=== PATIENT | female | born 1955 | race Caucasian/White ===

== ENCOUNTER 2016-08-14 20:37 | Emergency (ER) | payer MEDICAID ==
[2016-08-14 20:45] VITALS: RESP 18; TEMP 98
[2016-08-14] MEDS ORDERED: SODIUM CHLORIDE 0.9% 1,000 ML IV STA (21:10)
[2016-08-14] MEDS ORDERED: KETOROLAC 30 MG/ML 1 ML VIAL IVP STA (21:11)
[2016-08-14] MEDS ORDERED: ORPHENADRINE 30 MG/ML 2 ML VIAL IM STA (21:11)
--- NOTE | 2016-08-14 21:24 | ED ---
Back Pain HPI - General Chief Complaint: Back Pain/Injury Stated Complaint: Back pain Time Seen by Provider: 08/14/16 20:59 Source: patient, RN notes reviewed Limitations: no limitations - History of Present Illness Initial Comments: 60-year-old female presents emergency room chief complaint of back pain to the left side. Patient states along the left upper and lower back. Patient states she bends down or moves a certain way the pain is worse. Patient states an achy type pain. Patient states it happened when she was at work today. Patient states she does not remember injuring and she does not remember reaching for something lifting something when it occurred. Patient states she has no shortness of breath with this but she states it sometimes taking a deep breath will make the pain worse. Patient states that she has a having cough cold runny nose. Patient states that the pain gets intense she feels a little lightheaded she was a little bit of a headache. Patient states she hasn't had any nausea or vomiting. Patient states there is no chest pain. Patient denies any loss of bowel or bladder function or any radiation down the legs. Patient states that it feels almost like a musculoskeletal skeletal type injury but she cannot pinpoint how it occurred. Patient denies any recent fever, chills, shortness of breath, chest pain, abdominal pain, nausea vomiting, numbness or tingling, dysuria or hematuria, constipation or diarrhea, headaches or visual changes, or any other current symptoms. - Related Data Home Medications Medication Instructions Recorded Confirmed Atenolol [Tenormin] 25 mg PO HS 06/25/14 08/14/16 Ascorbic Acid [Vitamin C] 500 mg PO DAILY 08/14/16 08/14/16 Biotin 5 mg PO DAILY 08/14/16 08/14/16 Calcium Carbonate [Calcium] 600 mg PO DAILY 08/14/16 08/14/16 Flaxseed Oil [[place]-3 Flaxseed Oil] 1,000 mg PO DAILY 08/14/16 08/14/16 Vitamin B Complex 1 cap PO DAILY 08/14/16 08/14/16 Previous Rx's Medication Instructions Recorded Orphenadrine [Norflex] 100 mg PO Q12H #10 tablet.er 08/14/16 Allergies Allergy/AdvReac Type Severity Reaction Status Date / Time No Known Allergies Allergy Verified 08/14/16 20:53 Review of Systems ROS Statement: Those systems with pertinent positive or pertinent negative responses have been documented in the HPI. ROS Other: All systems not noted in ROS Statement are negative. Past Medical History Past Medical History: Hypertension History of Any Multi-Drug Resistant Organisms: None Reported Additional Past Surgical History / Comment(s): diverticulosis, right rib removal Past Psychological History: No Psychological Hx Reported Smoking Status: Never smoker Past Alcohol Use History: None Reported Past Drug Use History: None Reported General Exam - General Exam Comments Initial Comments: General: The patient is awake and alert, in no distress, and does not appear acutely ill. Eye: Pupils are equal, round and reactive to light, extra-ocular movements are intact; there is normal conjunctiva bilaterally. No signs of icterus. Ears, nose, mouth and throat: There are moist mucous membranes and no oral lesions. Neck: The neck is supple, there is no tenderness. Cardiovascular: There is a regular rate and rhythm. No murmur, rub or gallop is appreciated. Respiratory: Lungs are clear to auscultation, respirations are non-labored, breath sounds are equal. No wheezes, stridor, rales, or rhonchi. Gastrointestinal: Soft, non-distended, non-tender abdomen without masses or organomegaly noted. There is no rebound or guarding present. No CVA tenderness. Bowel sounds are unremarkable. Back: There is no tenderness to palpation in the midline. Tenderness of the left paraspinal region. There is no obvious deformity. No rashes noted. Musculoskeletal: Normal ROM, no tenderness, There is no pedal edema. There is no calf tenderness or swelling. Sensation intact. Pulses equal bilaterally 2+. Neurological: CN II-XII intact, There are no obvious motor or sensory deficits. Coordination appears grossly intact. Speech is normal. Skin: Skin is warm and dry and no rashes or lesions are noted. Psychiatric: Cooperative, appropriate mood & affect, normal judgment. Limitations: no limitations Course Vital Signs 08/14/16 08/14/16 20:42 23:00 Temperature 98.0 F Pulse Rate 61 65 Respiratory 18 18 Rate Blood Pressure 123/60 129/75 O2 Sat by Pulse 93 L 96 Oximetry Medical Decision Making - Medical Decision Making 60-year-old female presents emergency room chief complaint of left-sided flank pain. It is tender to touch. This time does not show any acute findings. Some excess patient might slightly as well as lumbar thoracic strain. We did discuss follow-up with Dr. Hernandez we discussed return parameters all patient's questions. She stated that she understood and she is in agreement with plan. She'll be discharged. - Lab Data Result diagrams: 08/14/16 21:32 08/14/16 21:32 Lab Results 08/14/16 08/14/16 08/14/16 Range/Units 21:32 21:32 21:32 WBC 6.4 (3.8-10.6) k/uL RBC 4.56 (3.80-5.40) m/uL Hgb 14.2 (11.4-16.0) gm/dL Hct 42.3 (34.0-46.0) % MCV 92.9 (80.0-100.0) fL MCH 31.1 (25.0-35.0) pg MCHC 33.4 (31.0-37.0) g/dL RDW 13.0 (11.5-15.5) % Plt Count 182 (150-450) k/uL Neutrophils % 60 % Lymphocytes % 30 % Monocytes % 6 % Eosinophils % 2 % Basophils % 1 % Neutrophils # 3.8 (1.3-7.7) k/uL Lymphocytes # 1.9 (1.0-4.8) k/uL Monocytes # 0.4 (0-1.0) k/uL Eosinophils # 0.1 (0-0.7) k/uL Basophils # 0.1 (0-0.2) k/uL PT (9.0-12.0) sec INR (<1.1) APTT (22.0-30.0) sec D-Dimer (<0.60) mg/L FEU Sodium 140 (137-145) mmol/L Potassium 4.5 (3.5-5.1) mmol/L Chloride 104 (98-107) mmol/L Carbon Dioxide 28 (22-30) mmol/L Anion Gap 8 mmol/L BUN 15 (7-17) mg/dL Creatinine 0.64 (0.52-1.04) mg/dL Est GFR (MDRD) Af Amer >60 (>60 ml/min/1.73 sqM) Est GFR (MDRD) Non-Af >60 (>60 ml/min/1.73 sqM) Glucose 92 (74-99) mg/dL Calcium 9.5 (8.4-10.2) mg/dL Magnesium 1.9 (1.6-2.3) mg/dL Total Bilirubin 0.6 (0.2-1.3) mg/dL AST 28 (14-36) U/L ALT 34 (9-52) U/L Alkaline Phosphatase 68 (38-126) U/L Total Creatine Kinase 201 H (30-135) U/L CK-MB (CK-2) 5.1 H* (0.0-2.4) ng/mL CK-MB (CK-2) Rel Index 2.5 Troponin I <0.012 (0.000-0.034) ng/mL Total Protein 7.2 (6.3-8.2) g/dL Albumin 4.4 (3.5-5.0) g/dL /08/25 Range/Units 21:32 WBC (3.8-10.6) k/uL RBC (3.80-5.40) m/uL Hgb (11.4-16.0) gm/dL Hct (34.0-46.0) % MCV (80.0-100.0) fL MCH (25.0-35.0) pg MCHC (31.0-37.0) g/dL RDW (11.5-15.5) % Plt Count (150-450) k/uL Neutrophils % % Lymphocytes % % Monocytes % % Eosinophils % % Basophils % % Neutrophils # (1.3-7.7) k/uL Lymphocytes # (1.0-4.8) k/uL Monocytes # (0-1.0) k/uL Eosinophils # (0-0.7) k/uL Basophils # (0-0.2) k/uL PT 10.4 (9.0-12.0) sec INR 1.0 (<1.1) APTT 23.8 (22.0-30.0) sec D-Dimer 0.55 (<0.60) mg/L FEU Sodium (137-145) mmol/L Potassium (3.5-5.1) mmol/L Chloride (98-107) mmol/L Carbon Dioxide (22-30) mmol/L Anion Gap mmol/L BUN (7-17) mg/dL Creatinine (0.52-1.04) mg/dL Est GFR (MDRD) Af Amer (>60 ml/min/1.73 sqM) Est GFR (MDRD) Non-Af (>60 ml/min/1.73 sqM) Glucose (74-99) mg/dL Calcium (8.4-10.2) mg/dL Magnesium (1.6-2.3) mg/dL Total Bilirubin (0.2-1.3) mg/dL AST (14-36) U/L ALT (9-52) U/L Alkaline Phosphatase (38-126) U/L Total Creatine Kinase (30-135) U/L CK-MB (CK-2) (0.0-2.4) ng/mL CK-MB (CK-2) Rel Index Troponin I (0.000-0.034) ng/mL Total Protein (6.3-8.2) g/dL Albumin (3.5-5.0) g/dL - EKG Data -: EKG Interpreted by 08/14/16 21:24 Sinus bradycardia 59 bpm, normal axis, no atopy, no S-T depressions or elevations, - Radiology Data Radiology results: report reviewed, image reviewed Disposition Clinical Impression: Lumbar strain Disposition: HOME SELF-CARE Condition: Stable Instructions: Lower Back Exercises (ED), Low Back Strain (ED) Additional Instructions: Please use medication as discussed. Please follow up with family doctor if symptoms have not improved over the next two days. Please return to the emergency room if your symptoms increase or worsen or for any other concerns. Prescriptions: Orphenadrine [Norflex] 100 mg PO Q12H #10 tablet.er Referrals: Yamileth Castillo DO [Primary Care Provider] - 1-2 days Time of Disposition: 23:38
[2016-08-14] MEDS ORDERED: ORPHENADRINE 30 MG/ML 2 ML VIAL IVP STA (21:35)
[2016-08-14 21:47] LABS: Basophils # (A) 0.1 k/uL (0-0.2); Basophils % (A) 1 %; CH 30.8; CHCM 33.3; Eosinophils # (A) 0.1 k/uL (0-0.7); Eosinophils % (A) 2 %; HCT 42.3 % (34.0-46.0); HDW 2.44; HGB 14.2 gm/dL (11.4-16.0); Luc % (Auto) 2; Lymphocytes # (A) 1.9 k/uL (1.0-4.8); Lymphocytes % (A) 30 %; MCH 31.1 pg (25.0-35.0); MCHC 33.4 g/dL (31.0-37.0); MCV 92.9 fL (80.0-100.0); Mean Platelet Volume 7.4; Monocytes # (A) 0.4 k/uL (0-1.0); Monocytes % (A) 6 %; Neutrophils # (A) 3.8 k/uL (1.3-7.7); Neutrophils % (A) 60 %; RBC 4.56 m/uL (3.80-5.40); WBC 6.4 k/uL (3.8-10.6); WBC (Perox) 6.21
--- NOTE | 2016-08-14 21:58 | XR ---
EXAMINATION TYPE: XR chest 2V DATE OF EXAM: 08/14/2016 COMPARISON: NONE HISTORY: Short of breath TECHNIQUE: Frontal and lateral views of the chest are obtained. FINDINGS: There is elevated right diaphragm. There are clips at the right lung apex. There is no hea rt failure. Left lung is clear. Heart size is normal. IMPRESSION: Elevated right diaphragm with previous surgery. No heart failure. 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
[2016-08-14 22:00] LABS: ALT 34 U/L (9-52); AST 28 U/L (14-36); Alkaline Phosphatase 68 U/L (38-126); Anion Gap 8 mmol/L; Blood Urea Nitrogen 15 mg/dL (7-17); Calcium 9.5 mg/dL (8.4-10.2); Carbon Dioxide 28 mmol/L (22-30); Chloride 104 mmol/L (98-107); Glucose 92 mg/dL (74-99); Magnesium 1.9 mg/dL (1.6-2.3); Non-African American GFR(MDRD) >60 (>60 ml/min/1.73 sqM); Potassium 4.5 mmol/L (3.5-5.1); Sodium 140 mmol/L (137-145); Total Bilirubin 0.6 mg/dL (0.2-1.3); Total Protein 7.2 g/dL (6.3-8.2)
[2016-08-14 22:04] LABS: Creatine Kinase 201 U/L (30-135)
[2016-08-14 22:05] LABS: Prothrombin Time 10.4 sec (9.0-12.0)
--- NOTE | 2016-08-14 22:05 | XR ---
EXAMINATION TYPE: XR lumbar spine 2 or 3V DATE OF EXAM: 08/14/2016 COMPARISON: NONE HISTORY: Back pain TECHNIQUE: 3 views FINDINGS: There is mild lumbar levoscoliosis. There is some anterior wedging of L2 and L1 vertebra wi th up to 25% loss of height. There is a extensive anterior spurring. Posterior elements are intact. S acroiliac joints appear normal. IMPRESSION: Old mild compression fractures of L1 and L2. Spondylotic changes. Levoscoliosis. No acute fracture seen. No change compared to CT scan of 06/25/2014.
[2016-08-14 22:06] LABS: Partial Thromboplastin Time 23.8 sec (22.0-30.0)
[2016-08-14 22:17] LABS: Troponin I <0.012 ng/mL (0.000-0.034)
[2016-08-14 22:18] LABS: Creatine Kinase MB 5.1 ng/mL (0.0-2.4)
--- NOTE | 2016-08-14 23:31 | CT ---
EXAM: CT Lumbar Spine Without Intravenous Contrast CLINICAL HISTORY: Reason: Pain TECHNIQUE: Axial computed tomography images of the lumbar spine without intravenous contrast. CTDI is 36.2 L mGy and DLP is 995 mGy-cm. This CT exam was performed using one or more of the following dose reduction techniques: automated exposure control, adjustment of the mA and/or kV according to patient size, and/or use of iterative reconstruction technique. Coronal and sagittal reformatted images were created and reviewed. COMPARISON: Lumbar spine radiograph dated 08/14/[address] abdomen pelvis dated 06/25/14 FINDINGS: Vertebrae: Chronic compression deformity of L1 and L2. Levoconvex scoliosis seen. There is associated endplate sclerosis seen at L1/L2 and L2/L3 secondary to disc disease and scoliosis. No acute fracture. Discs/spinal canal/neural foramina: Neuroforaminal stenosis is seen on the right at L1/L2 and L2/L3. Neuroforaminal stenosis is seen on the left at L3/L4 and L4/L5. Disc osteophyte complexes are seen at T12/L1, L1/L2, and L2/L3. Disc bulges are also seen at L4/L5 and L5/S1. Facet disease is seen at L3/L4, L4/L5 and L5/S1. Soft tissues: Unremarkable. IMPRESSION: 1. Chronic compression deformity of L1 and L2. No acute fracture. 2. Levoconvex scoliosis seen. 3. There is associated endplate sclerosis seen at L1/L2 and L2/L3 secondary to disc disease and scoliosis. 4. Neuroforaminal stenosis is seen on the right at L1/L2 and L2/L3. Neuroforaminal stenosis is seen on the left at L3/L4 and L4/L5.
[2016-08-14 23:50] VITALS: BP 130/66; PULSE 70
== END 2016-08-14 23:50 | disposition home or self-care (01) ==
LOC: EC 20:37
DX: S39.012A Strain of muscle, fascia and tendon of lower back, initial encounter (principal); R05 Cough; R09.89 Other specified symptoms and signs involving the circulatory and respiratory systems; R51 Headache; R42 Dizziness and giddiness; I10 Essential (primary) hypertension; Z79.899 Other long term (current) drug therapy; X50.9XXA Other and unspecified overexertion or strenuous movements or postures, initial encounter
CPT/HCPCS: 36415; 85379; 80053; 82550; 82553; 83735; 84484; 85025; 85610; 85730; 71020; 72100; 72131; 99284; 96374; 96375; 96361 ×2; 96372; J2360; J1885; 93005

== ENCOUNTER → 2016-09-03 | Outpatient (CLI) | payer MEDICAID ==
[2016-09-03 15:14] LABS: ALT 32 U/L (9-52); AST 26 U/L (14-36); Blood Urea Nitrogen 16 mg/dL (7-17); Non-African American GFR(MDRD) >60 (>60 ml/min/1.73 sqM); Uric Acid 7.7 mg/dL (3.7-7.4)
== END | disposition home or self-care (01) ==
LOC: LABWHC1 14:06
PROVIDERS: ATTEND Podiatrist
DX: M10.9 Gout, unspecified (principal)
CPT/HCPCS: 36415; 82565; 84450; 84460; 84520; 84550

== ENCOUNTER → 2017-01-22 | Outpatient (CLI) | payer MEDICAID ==
[2017-01-22 15:53] LABS: Basophils % (A) 0 %; CH 30.7; CHCM 32.1; Eosinophils # (A) 0.1 k/uL (0-0.7); Eosinophils % (A) 1 %; HCT 45.9 % (34.0-46.0); HDW 2.47; HGB 14.7 gm/dL (11.4-16.0); Luc % (Auto) 2; Lymphocytes # (A) 1.8 k/uL (1.0-4.8); Lymphocytes % (A) 31 %; MCH 30.7 pg (25.0-35.0); Mean Platelet Volume 7.4; Monocytes # (A) 0.3 k/uL (0-1.0); Monocytes % (A) 6 %; Neutrophils # (A) 3.5 k/uL (1.3-7.7); Neutrophils % (A) 60 %; RBC 4.79 m/uL (3.80-5.40); RDW 12.4 % (11.5-15.5); WBC 5.9 k/uL (3.8-10.6); WBC (Perox) 5.87
[2017-01-22 15:55] LABS: ALT 43 U/L (9-52); AST 33 U/L (14-36); Alkaline Phosphatase 66 U/L (38-126); Anion Gap 9 mmol/L; Blood Urea Nitrogen 12 mg/dL (7-17); Calcium 10.2 mg/dL (8.4-10.2); Carbon Dioxide 29 mmol/L (22-30); Chloride 102 mmol/L (98-107); Cholesterol 144 mg/dL (<200); Glucose 85 mg/dL (74-99); HDL Cholesterol 46 mg/dL (40-60); Non-African American GFR(MDRD) >60 (>60 ml/min/1.73 sqM); Sodium 140 mmol/L (137-145); Total Bilirubin 0.7 mg/dL (0.2-1.3); Total Protein 6.9 g/dL (6.3-8.2)
== END | disposition home or self-care (01) ==
LOC: LABWHC1 15:06
PROVIDERS: ATTEND Family Medicine
DX: Z00.00 Encounter for general adult medical examination without abnormal findings (principal); I10 Essential (primary) hypertension
CPT/HCPCS: 36415; 80053; 80061; 85025

== ENCOUNTER 2017-05-16 12:57 | Emergency (ER) | payer MEDICAID ==
[2017-05-16 13:03] VITALS: BP 177/86; PULSE 58; RESP 18; TEMP 97.3
--- NOTE | 2017-05-16 13:10 | ED ---
General Adult HPI - General Chief complaint: Extremity Injury, Lower Stated complaint: Fall-ankle injury Time Seen by Provider: 05/16/17 13:04 Source: patient, RN notes reviewed Mode of arrival: wheelchair Limitations: no limitations - History of Present Illness Initial comments: 61-year-old female presents to the emergency department with a chief complaint of trip and fall. She tripped and fell at her house. She hit her left elbow on the [place]. She states she then landed onto her left ankle and has pain to the outside aspect. She states that it hurts to walk on that ankle. She states she did not hit her head she did not pass out. It was a simple slip and fall. Her pain is moderate worse to touch along the outside of left ankle. Patient does admit to previous injury to the left ankle in the past. Patient denies any recent fever, chills, shortness of breath, chest pain, back pain, abdominal pain, nausea vomiting, numbness or tingling, dysuria or hematuria, constipation or diarrhea, headaches or visual changes, or any other current symptoms. - Related Data Home Medications Medication Instructions Recorded Confirmed Atenolol [Tenormin] 25 mg PO HS 06/25/14 08/14/16 Ascorbic Acid [Vitamin C] 500 mg PO DAILY 08/14/16 08/14/16 Biotin 5 mg PO DAILY 08/14/16 08/14/16 Calcium Carbonate [Calcium] 600 mg PO DAILY 08/14/16 08/14/16 Flaxseed Oil [[place]-3 Flaxseed Oil] 1,000 mg PO DAILY 08/14/16 08/14/16 Vitamin B Complex 1 cap PO DAILY 08/14/16 08/14/16 Previous Rx's Medication Instructions Recorded Orphenadrine [Norflex] 100 mg PO Q12H #10 tablet.er 08/14/16 traMADol HCl [Ultram] 50 mg PO Q6H PRN #20 tab 05/16/17 Allergies Allergy/AdvReac Type Severity Reaction Status Date / Time No Known Allergies Allergy Verified 05/16/17 13:03 Review of Systems ROS Statement: Those systems with pertinent positive or pertinent negative responses have been documented in the HPI. ROS Other: All systems not noted in ROS Statement are negative. Past Medical History Past Medical History: Hypertension History of Any Multi-Drug Resistant Organisms: None Reported Additional Past Surgical History / Comment(s): diverticulosis, right rib removal Past Psychological History: No Psychological Hx Reported Smoking Status: Never smoker Past Alcohol Use History: None Reported Past Drug Use History: None Reported General Exam - General Exam Comments Initial Comments: General: The patient is awake and alert, in no distress, and does not appear acutely ill. Neck: The neck is supple, there is no tenderness. Cardiovascular: There is a regular rate and rhythm. No murmur, rub or gallop is appreciated. Respiratory: Lungs are clear to auscultation, respirations are non-labored, breath sounds are equal. No wheezes, stridor, rales, or rhonchi. Musculoskeletal: Sensation intact with 2+ pulses throughout the left upper and left lower externa. Patient has no bony tenderness to left upper extremity with multiple abrasions noted. Patient has no tenderness to the left knee with full range of motion. Patient has tenderness along the lateral malleolus with some swelling. No tenderness to palpation of the foot. Neurological: CN II-XII intact, There are no obvious motor or sensory deficits. Coordination appears grossly intact. Speech is normal. Skin: Skin is warm and dry and no rashes or lesions are noted. Psychiatric: Normal mood and affect. Limitations: no limitations Course Vital Signs 05/16/17 12:59 Temperature 97.3 F L Pulse Rate 58 L Respiratory 18 Rate Blood Pressure 177/86 O2 Sat by Pulse 99 Oximetry Procedures - Orthopedic Splinting/Casting Injury #1 Side: left Lower Extremity Injury Location: short leg, ankle Lower Extremity Immobilizer: stirrup splint Medical Decision Making - Medical Decision Making 61-year-old female presents for a slip and fall. At this time patient does appear to have a left fibular fracture. Patient was placed in a splint. We discussed follow-up we discussed return parameters all questions. Patient family stated they understood this plan. All questions have been answered. They will be discharged. - Radiology Data Radiology results: report reviewed, image reviewed Disposition Clinical Impression: Fall, Left fibular fracture, Abrasion of left arm Disposition: HOME SELF-CARE Condition: Stable Instructions: Ankle Fracture (ED), Abrasion (ED) Additional Instructions: Please use medication as discussed. Please follow up with family doctor if symptoms have not improved over the next two days. Please return to the emergency room if your symptoms increase or worsen or for any other concerns. Prescriptions: traMADol HCl [Ultram] 50 mg PO Q6H PRN #20 tab PRN Reason: Pain Referrals: Yamileth Castillo DO [Primary Care Provider] - 1-2 days Chris Hussein MD [Medical Doctor] - 1-2 days Time of Disposition: 13:44
--- NOTE | 2017-05-16 13:32 | XR ---
EXAMINATION TYPE: XR ankle complete LT DATE OF EXAM: 05/16/2017 COMPARISON: NONE HISTORY: Pain. Swelling TECHNIQUE: Three-view left ankle FINDINGS: On the oblique view there is a subtle lucency within the distal metaphyseal fibula. Correla te with location of the patient's pain. A nondisplaced fracture may be present at this location The ankle mortise is intact. No additional area suspicious for fracture is evident. Small plantar joel caneal heel spur is present. Soft tissue swelling appears to be present diffusely over the distal ank le may be slightly greater on the medial side. Clinical correlation is recommended. IMPRESSION: 1. Nondisplaced fracture of the distal metaphyseal fibula is not excluded. Clinical correlation tyler mmended. 2. Mild soft tissue swelling.
== END 2017-05-16 13:56 | disposition home or self-care (01) ==
LOC: EC 12:57
DX: S89.302A Unspecified physeal fracture of lower end of left fibula, initial encounter for closed fracture (principal); S40.812A Abrasion of left upper arm, initial encounter; I10 Essential (primary) hypertension; Z79.899 Other long term (current) drug therapy; W01.198A Fall on same level from slipping, tripping and stumbling with subsequent striking against other object, initial encounter; Y92.009 Unspecified place in unspecified non-institutional (private) residence as the place of occurrence of the external cause
CPT/HCPCS: 29515; 99283

== ENCOUNTER 2017-05-21 06:05 | Emergency (ER) | payer MEDICAID ==
[2017-05-21] MEDS ORDERED: oxyCODONE-APAP 5-325MG 1 EACH TAB PO STA (06:28)
--- NOTE | 2017-05-21 06:35 | ED ---
Lower Extremity Injury HPI - General Source: patient Mode of arrival: ambulatory Limitations: no limitations <Tonia Monique - Last Filed: 05/21/17 07:18> <Stephane Youssef - Last Filed: 05/21/17 09:39> - General Chief Complaint: Extremity Injury, Lower Stated Complaint: knee pain Time Seen by Provider: 05/21/17 06:21 - History of Present Illness Initial Comments: Extremity years O female complaining about left kidney pain, she had doubt fracture of the left ankle now complaining about pain in the left knee she denies any trauma or fall she does have a history of for gout in left kidney feels warm. No fever no chills no recent trauma, she is wearing a a splint for the left ankle pain she denies any chest pain or shortness of breath no pleuritic chest pain (Tonia Monique) - Related Data Home Medications Medication Instructions Recorded Confirmed Atenolol [Tenormin] 25 mg PO HS 06/25/14 05/21/17 Ascorbic Acid [Vitamin C] 500 mg PO DAILY 08/14/16 05/21/17 Biotin 5 mg PO DAILY 08/14/16 05/21/17 Calcium Carbonate [Calcium] 600 mg PO DAILY 08/14/16 05/21/17 Flaxseed Oil [[place]-3 Flaxseed Oil] 1,000 mg PO DAILY 08/14/16 05/21/17 Vitamin B Complex 1 cap PO DAILY 08/14/16 05/21/17 Previous Rx's Medication Instructions Recorded traMADol HCl [Ultram] 50 mg PO Q6H PRN #20 tab 05/16/17 Ibuprofen [Motrin] 600 mg PO Q8HR PRN #24 tab 05/21/17 Allergies Allergy/AdvReac Type Severity Reaction Status Date / Time No Known Allergies Allergy Verified 05/21/17 07:50 Review of Systems ROS Other: All systems not noted in ROS Statement are negative. <Tonia Monique - Last Filed: 05/21/17 07:18> ROS Other: All systems not noted in ROS Statement are negative. <Stephane Youssef - Last Filed: 05/21/17 09:39> ROS Statement: Those systems with pertinent positive or pertinent negative responses have been documented in the HPI. Past Medical History Past Medical History: Hypertension History of Any Multi-Drug Resistant Organisms: None Reported Additional Past Surgical History / Comment(s): diverticulosis, right rib removal , Left ankle inury 2018 Past Psychological History: No Psychological Hx Reported Smoking Status: Never smoker Past Alcohol Use History: None Reported, Occasional Past Drug Use History: None Reported <Tonia Monique - Last Filed: 05/21/17 07:18> General Exam Limitations: no limitations <Tonia Monique - Last Filed: 05/21/17 07:18> <Stephane Youssef - Last Filed: 05/21/17 09:39> - General Exam Comments Initial Comments: General: The patient is awake and alert, in mod distress, and does not appear acutely ill. Skin: Skin is warm and dry and no rashes or lesions are noted. Eye: Pupils are equal, round and reactive to light, extra-ocular movements are intact; there is normal conjunctiva bilaterally. Ears, nose, mouth and throat: There are moist mucous membranes and no oral lesions. Neck: The neck is supple, there is no tenderness or JVD. Cardiovascular: There is a regular rate and rhythm. No murmur, rub or gallop is appreciated. Respiratory: To auscultation bilateral, no wheezing no rhonchi no distress respiratory joyner noticed Gastrointestinal: Soft, non-distended, non-tender abdomen without masses or organomegaly noted. There is no rebound or guarding present. Bowel sounds are unremarkable. Back: There is no tenderness to palpation in the midline. There is no obvious deformity. Musculoskeletal: Knee seems bit swollen, mildly warmer, no clear skin infection or cellulitis noticed Neurological: CN II-XII intact, Cranial nerves III through XII are intact. There are no obvious motor or sensory deficits. Coordination appears grossly intact. Speech is normal. Psychiatric: Cooperative, appropriate mood & affect, normal judgment. (Tonia Monique) Course <Tonia Monique - Last Filed: 05/21/17 07:18> <Stephane Youssef - Last Filed: 05/21/17 09:39> Vital Signs 05/21/17 06:09 Temperature 98.0 F Pulse Rate 69 Respiratory 18 Rate Blood Pressure 145/83 O2 Sat by Pulse 98 Oximetry Patient is reassessed at term 7:15, d-dimer is positive she will get ultrasound of the left leg to rule out DVT, knee x-rays done (Tonia Monique) - Reevaluation(s) Reevaluation #1: patient endorsed to Dr Youssef at 0715 for further f/u 05/21/17 07:18 (Tonia Monique) Medical Decision Making - Lab Data Result diagrams: 05/21/17 06:38 <Tonia Monique - Last Filed: 05/21/17 07:18> - Lab Data Result diagrams: 05/21/17 06:38 <Stephane Youssef - Last Filed: 05/21/17 09:39> - Medical Decision Making 61-year-old female with left knee pain. Patient's care was signed out awaiting ultrasound for DVT. This is negative for DVT. X-ray reviewed, there is small joint effusion, no fracture,. There is small chance that effusion and warmth are secondary to infection, although patient is afebrile, white blood cell count is negative. She will watch for fever, and worsening pain and swelling in her left knee. She does have an appointment in 2 days with orthopedic surgery. She will maintain this appointment. In the meantime she will take anti-inflammatory medication. (Stephane Youssef) - Lab Data Lab Results 05/21/17 05/21/17 05/21/17 Range/Units 06:38 06:38 06:38 WBC 9.0 (3.8-10.6) k/uL RBC 4.63 (3.80-5.40) m/uL Hgb 13.6 (11.4-16.0) gm/dL Hct 42.0 (34.0-46.0) % MCV 90.7 (80.0-100.0) fL MCH 29.4 (25.0-35.0) pg MCHC 32.5 (31.0-37.0) g/dL RDW 12.7 (11.5-15.5) % Plt Count 188 (150-450) k/uL Neutrophils % 75 % Lymphocytes % 16 % Monocytes % 7 % Eosinophils % 1 % Basophils % 0 % Neutrophils # 6.8 (1.3-7.7) k/uL Lymphocytes # 1.5 (1.0-4.8) k/uL Monocytes # 0.6 (0-1.0) k/uL Eosinophils # 0.1 (0-0.7) k/uL Basophils # 0.0 (0-0.2) k/uL D-Dimer 0.68 H (<0.60) mg/L FEU Uric Acid 6.3 (3.7-7.4) mg/dL Disposition <Tonia Monique - Last Filed: 05/21/17 07:18> Time of Disposition: 09:38 <Stephane Youssef - Last Filed: 05/21/17 09:39> Clinical Impression: Knee pain, Effusion, left knee Disposition: HOME SELF-CARE Condition: Good Instructions: Knee Pain (ED) Prescriptions: Ibuprofen [Motrin] 600 mg PO Q8HR PRN #24 tab PRN Reason: Pain Referrals: Yamileth Castillo DO [Primary Care Provider] - 1-2 days Chris Hussein MD [Medical Doctor] - 1-2 days
[2017-05-21 06:52] LABS: Basophils % (A) 0 %; Eosinophils # (A) 0.1 k/uL (0-0.7); Eosinophils % (A) 1 %; HGB 13.6 gm/dL (11.4-16.0); Lymphocytes # (A) 1.5 k/uL (1.0-4.8); Lymphocytes % (A) 16 %; MCH 29.4 pg (25.0-35.0); MCHC 32.5 g/dL (31.0-37.0); MCV 90.7 fL (80.0-100.0); Mean Platelet Volume 7.5; Monocytes # (A) 0.6 k/uL (0-1.0); Monocytes % (A) 7 %; Neutrophils # (A) 6.8 k/uL (1.3-7.7); Neutrophils % (A) 75 %; Platelet Count 188 k/uL (150-450); RBC 4.63 m/uL (3.80-5.40); RDW 12.7 % (11.5-15.5)
--- NOTE | 2017-05-21 07:25 | XR ---
EXAM: XR Left Knee, 3 views CLINICAL HISTORY: Rule out fracture. TECHNIQUE: Three views of the left knee. COMPARISON: No relevant prior studies available. FINDINGS: Bones/joints: No acute fracture or traumatic malalignment. Small joint effusion. Partially calcified menisci suggesting chondrocalcinosis. Soft tissues: Unremarkable. IMPRESSION: 1. No acute fracture or traumatic malalignment. 2. Small joint effusion.
--- NOTE | 2017-05-21 09:08 | US ---
EXAMINATION TYPE: US venous doppler duplex LE LT DATE OF EXAM: 05/21/2017 7:28 AM COMPARISON: NONE CLINICAL HISTORY: Pain. SIDE PERFORMED: Left TECHNIQUE: The lower extremity deep venous system is examined utilizing real time linear array sonog salvador with graded compression, doppler sonography and color-flow sonography. VESSELS IMAGED: External Iliac Vein (EIV) Common Femoral Vein Deep Femoral Vein Greater Saphenous Vein * Femoral Vein Popliteal Vein Small Saphenous Vein * Proximal Calf Veins (* superficial vessels) Grayscale, color doppler, spectral doppler imaging performed of the deep veins of the lower extremity . There is normal flow, compressibility, vascular waveforms. IMPRESSION: Left Leg: Negative for DVT
[2017-05-21 09:59] VITALS: BP 108/68; PULSE 61; RESP 17; TEMP 97.7
== END 2017-05-21 09:57 | disposition home or self-care (01) ==
LOC: EC 06:05
DX: M25.462 Effusion, left knee (principal); I10 Essential (primary) hypertension; Z79.899 Other long term (current) drug therapy
CPT/HCPCS: 36415; 84550; 85025; 85379; 99284

== ENCOUNTER → 2018-08-01 | Outpatient (CLI) | payer MEDICAID ==
--- NOTE | 2018-08-01 15:08 | MR ---
EXAMINATION TYPE: MR knee RT wo con DATE OF EXAM: 08/01/2018 COMPARISON: None HISTORY: M25.561 Pain in right knee TECHNIQUE: Multiplanar, multisequence images of the knee is performed without IV contrast. FINDINGS: MEDIAL MENISCUS: Myxoid degeneration posterior horn medial meniscus without definite tear. Anterior h orn is unremarkable. LATERAL MENISCUS: Anterior and posterior horns are intact without tear. CRUCIATE LIGAMENTS: The anterior and posterior cruciate ligaments are intact and unremarkable. Loose body measuring 7 mm anterior to the ACL. COLLATERAL LIGAMENTS: The medial collateral ligament and lateral collateral ligament complex are inta ct and unremarkable. EXTENSOR MECHANISM: Visualized quadriceps and patellar tendons are intact. EFFUSION: No significant suprapatellar joint effusion. POPLITEAL CYST: No popliteal/liz cyst. TRICOMPARTMENT SPACES: Moderate narrowing medial tibiofemoral joint space and patellofemoral joint sp hi. Changes of chondromalacia patella. Subchondral edema noted. CARTILAGE: Cartilaginous thinning identified. BONE MARROW SIGNAL: No focal abnormal marrow signal is appreciated. OTHER: No additional significant abnormality is appreciated. IMPRESSION: 1.Loose body measuring 7 mm anterior to the ACL. 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 3. Osteoarthritis and chondromalacia patella.
== END | disposition home or self-care (01) ==
LOC: RADMRIMAIN 13:37
PROVIDERS: ATTEND Orthopaedic Surgery
DX: M17.11 Unilateral primary osteoarthritis, right knee (principal); M22.41 Chondromalacia patellae, right knee; M23.321 Other meniscus derangements, posterior horn of medial meniscus, right knee; M23.41 Loose body in knee, right knee

== ENCOUNTER → 2018-12-27 | Outpatient (CLI) | payer MEDICAID ==
[2018-12-27 11:09] LABS: Basophils % (A) 1 %; Eosinophils # (A) 0.2 k/uL (0-0.7); Eosinophils % (A) 3 %; HCT 44.3 % (34.0-46.0); HGB 14.7 gm/dL (11.4-16.0); Lymphocytes # (A) 1.9 k/uL (1.0-4.8); Lymphocytes % (A) 34 %; MCH 31.3 pg (25.0-35.0); MCHC 33.1 g/dL (31.0-37.0); MCV 94.6 fL (80.0-100.0); Mean Platelet Volume 7.4; Monocytes # (A) 0.4 k/uL (0-1.0); Monocytes % (A) 7 %; Neutrophils % (A) 54 %; Platelet Count 208 k/uL (150-450); RBC 4.68 m/uL (3.80-5.40); RDW 12.7 % (11.5-15.5); WBC 5.5 k/uL (3.8-10.6)
[2018-12-27 15:58] LABS: African American GFR (CKD) 111.6 (60.0-200.0); Albumin 4.5 g/dL (3.80-4.90); Albumin/Globulin Ratio 2.37 (1.60-3.17); Anion Gap 6.5 mmol/L (4.00-12.00); BUN/Creat Ratio 23.33 Ratio (12.00-20.00); Carbon Dioxide 32.5 mmol/L (21.6-31.8); Chol/HDL Ratio 3.4; Globulin 1.9 g/dL (1.6-3.3); LDL Cholesterol,Calculated 88.2 mg/dL (0.0-131.0); Potassium 4.8 mmol/L (3.5-5.5); Total Bilirubin 0.5 mg/dL (0.3-1.2); Total Protein 6.4 g/dL (6.2-8.2); VLDL Calculation 14.8 mg/dL (5.00-40.00)
[2018-12-27 20:57] LABS: Hemoglobin A1C 5.6 % (4.0-6.0)
== END | disposition home or self-care (01) ==
LOC: LABWHC1 09:59
PROVIDERS: ATTEND Internal Medicine
DX: I10 Essential (primary) hypertension (principal); R79.9 Abnormal finding of blood chemistry, unspecified
CPT/HCPCS: 36415; 80053; 80061; 83036; 84443; 85025

== ENCOUNTER 2019-01-09 09:30 | Day surgery (SDC) | payer MEDICAID ==
[2019-01-06 15:42] VITALS: BMI 28.3
[2019-01-09 09:59] VITALS: RESP 16; TEMP 97.4
[2019-01-09] MEDS ORDERED: LIDOCAINE 1% 20 ML VIAL (10MG/ML) FOR IV START INTRADERMA ONE (10:05)
[2019-01-09] MEDS: LACTATED RINGERS 1,000 ML IV SCH ×2 (10:06→10:19)
[2019-01-09] MEDS ORDERED: PROPOFOL 10 MG/ML 20 ML VIAL IV ONE (10:21)
[2019-01-09] MEDS ORDERED: MIDAZOLAM 2 MG/2 ML VIAL ONE (10:21)
[2019-01-09] MEDS ORDERED: fentaNYL (PF) 50 MCG/ML 2 ML AMP ONE (10:21)
[2019-01-09 10:58] VITALS: BP 142/88; PULSE 67
--- NOTE | 2019-01-09 11:01 | P.PCN ---
Date of Procedure: 01/09/19 Procedure(s) Performed: BRIEF HISTORY: Patient is a 63-year-old pleasant female scheduled for an elective colonoscopy as a part of evaluation of prior history of colon polyps. Last endoscopy was 6 years ago. PROCEDURE PERFORMED: Colonoscopy with biopsy PREOPERATIVE DIAGNOSIS: History of colon polyps IV sedation per Anesthesia. PROCEDURE: After informed consent was obtained, the patient, was brought into the endoscopy unit. IV sedation was administered by Anesthesia under continuous monitoring. Digital rectal examination was normal. Initially the Olympus CF-160 flexible video colonoscope was then inserted in the rectum, gradually advanced into the cecum without any difficulty. Careful examination was performed as the scope was gradually being withdrawn. Ileocecal valve and the appendiceal orifice were visualized and appeared normal. Prep was excellent. Mucosa of the cecum, ascending colon, transverse colon, descending colon, sigmoid colon, and rectum appeared normal. Retroflexion was performed in the rectum and 2 polypoid areas were noted measuring 1 mm in size which were biopsied. Also there was external hemorrhoids seen. Scattered sigmoid diverticulosis. The patient tolerated the procedure well. IMPRESSION: Small external hemorrhoids 2 polyps in the anal verge suspicious for rectal prolapse versus distal rectal polyp status post multiple biopsies Scattered sigmoid diverticulosis. RECOMMENDATIONS: Findings of this examination were discussed with the patient as well his family. She was advised to follow with the biopsy results. Reason the biopsy results will decide if she needs to have a repeat colonoscopy in 3-5 years or sooner for polypectomy..
== END 2019-01-09 11:26 | disposition home or self-care (01) ==
LOC: ORWHC2ENDO 09:30
PROVIDERS: ATTEND Internal Medicine Gastroenterology
DX: Z12.11 Encounter for screening for malignant neoplasm of colon (principal); K62.0 Anal polyp; K57.30 Diverticulosis of large intestine without perforation or abscess without bleeding; K64.4 Residual hemorrhoidal skin tags; I10 Essential (primary) hypertension; Z86.010 Personal history of colon polyps; Z91.041 Radiographic dye allergy status; Z79.899 Other long term (current) drug therapy
CPT/HCPCS: 88305; 45380; J2250; J3010; J2704

== ENCOUNTER → 2019-01-22 | Outpatient (CLI) | payer MEDICAID ==
[~2019-01-22] MED LIST: REGADENOSON 0.4 MG/5 ML SYRINGE IV ONE
--- NOTE | 2019-01-22 13:33 | NM ---
EXAMINATION TYPE: NM stress lexiscan cardiolite DATE OF EXAM: 01/22/2019 COMPARISON: NONE HISTORY: 63-year-old female transmural septal acute DC. TECHNIQUE: After the intravenous administration of 9.82 mCi Tc 99m Sestamibi - Cardiolite resting SP ECT images acquired 50 minutes post injection. The patient received 0.4mg Lexiscan, 25.6 mCi Tc 99m Sestamibi - Stress images obtained [address] injection FINDINGS: Review of stress and rest SPECT images demonstrates a moderate-sized area of reversibility along the mid to apical lateral wall no distinct perfusion abnormality. Gated analysis mid to apical lateral w all hypokinesis and estimated left ventricular ejection fraction of 70 %. TID is calculated at 0.98, within normal limits. IMPRESSION: Scintigraphic findings suggest inducible ischemia along the mid to apical lateral wall.
--- NOTE | 2019-01-22 18:11 | EST ---
EXERCISE STRESS AGE: 63 SEX: Female HT: 65" WT: 170 PROTOCOL: Lexiscan/Cardiolite STAGE: DURATION OF EXERCISE: HEART RATE REST: 55 BLOOD PRESSURE REST: 129/85 MAXIMUM HEART RATE ACHIEVED: 79 MAXIMUM BLOOD PRESSURE: 133/83 85% MPHR: 100% MPHR: METS: INDICATIONS: Chest pain. She had an anteroseptal wall OK in the past. CLINICAL INFORMATION: Baseline heart rate 55 beats per minute. Baseline blood pressure 129/85 mmHg. Baseline 12-lead ECG shows normal sinus rhythm with normal cardiac intervals. Patient received Lexiscan infusion per protocol. There was no change in the ST segments. No evidence of ischemia noted. She did not have any chest discomfort. Blood pressure and heart rate remained normal. Nuclear portion of the stress test will be reported separately. MMODL / IJN: [id number] /
== END | disposition home or self-care (01) ==
LOC: RADNMMAIN 08:30
PROVIDERS: ATTEND Internal Medicine
DX: I21.29 ST elevation (STEMI) myocardial infarction involving other sites (principal)
CPT/HCPCS: 93017; 78452; A9500; J2785

== ENCOUNTER → 2019-02-12 | Outpatient (CLI) | payer MEDICAID ==
[2019-02-12 13:23] LABS: HCT 46.7 % (34.0-46.0); HGB 14.9 gm/dL (11.4-16.0); MCH 29.6 pg (25.0-35.0); MCV 92.5 fL (80.0-100.0); Platelet Count 201 k/uL (150-450); RBC 5.05 m/uL (3.80-5.40); RDW 12.9 % (11.5-15.5); WBC 5.6 k/uL (3.8-10.6)
[2019-02-12 13:38] LABS: African American GFR (CKD) >90 (>60 ml/min/1.73 sqM); Anion Gap 7 mmol/L; Blood Urea Nitrogen 13 mg/dL (7-17); Carbon Dioxide 32 mmol/L (22-30); Chloride 102 mmol/L (98-107); Non-African American GFR(CKD) >90 (>60 ml/min/1.73 sqM); Potassium 4.9 mmol/L (3.5-5.1); Sodium 141 mmol/L (137-145)
== END | disposition home or self-care (01) ==
LOC: LABPAT 12:21
PROVIDERS: ATTEND Internal Medicine Interventional Cardiology
DX: Z01.812 Encounter for preprocedural laboratory examination (principal); R07.9 Chest pain, unspecified
CPT/HCPCS: 36415; 80051; 82565; 84520; 85027

== ENCOUNTER → 2019-02-26 | Outpatient (CLI) | payer MEDICAID ==
--- NOTE | 2019-02-26 14:52 | BD ---
EXAMINATION TYPE: Axial Bone Density DATE OF EXAM: 02/26/2019 COMPARISON: NONE CLINICAL HISTORY: 63 YR OLD FEMALE....ICD-10 CODE: M85.9 DISORDER OF BONE Height: 63.4 Weight: 173 FRAX RISK QUESTIONS: Glucocorticoids (More than 3mos): FOR EYES (Ex: prednisone, prednisolone, methylprednisolone, dexamethasone, and hydrocortisone). History of Fracture in Adulthood: YES RISK FACTORS HISTORY OF: HX OF LT ANKLE FX > 50 YRS OLD, History of Wrist Fracture: RT WRIST IN HER 20s Surgery to Spine LUMBAR SPINE COMPRESSION FX OF L2 > 50 YRS OF AGE, WORE BACK BRACE Active: YES, WORKS AT [employer] Postmenopausal woman: YES AT ABOUT 50 YRS OLD Hyperparathyroidism: NO Adrenal Insufficiency: NO MEDICATIONS: Prednisone or other steroids: STEROID DROPS FOR EYES Additional Medications: BP MEDS, MULTIVITAMIN WITH CALCIUM AND VIT D Additional History: HYPERTENSION EXAM MEASUREMENTS: Bone mineral densitometry was performed using the [employer] System. LUMBAR COMPRESSION FX....L2, SPINE NOT SCANNED Bone mineral density about the R hip (g/cm2): 0.794 Bone mineral density about the L hip (g/cm2): 0.789 T Score values are as follows: -----R Neck: -2.0 -----L Neck: -1.6 -----R Total: -1.7 -----L Total: -1.7 Bone mineral density FIRST DEXA SCAN.......BASELINE STUDY FRAX%s: THERE IS A 26.4% CHANCE FOR A MAJOR OSTEOPOROTIC FX AND A 4.7% FOR HIP.....PROBABILITY FO R FX IN 10 YRS TIME Bone mineral density about the L Wrist (g/cm2): 0.540 T Score values are as follows: -----Dist. R+U: -2.3 -----Prox. R+U: -1.4 -----Radius total: -2.1 Bone mineral density BASELINE STUDY IMPRESSION: Osteopenia (T Score between -2.5 and -1). There is slightly increased risk of fracture and the patient may be considered for treatment. Re-Screen 2-5 years. NOTE: T-SCORE=SD OF THE YOUNG ADULT MEAN.
--- NOTE | 2019-02-27 11:37 | MM ---
Reason for exam: screening (asymptomatic). Last mammogram was performed 4 years and 7 months ago. History: Patient is postmenopausal and had first child at age 31. Physical Findings: A clinical breast exam by your physician is recommended on an annual basis and results should be correlated with mammographic findings. MG 3D Screening Mammo W/Cad Bilateral CC and MLO view(s) were taken. Prior study comparison: July 13, 2014, bilateral MG screening mammo w CAD. The breast tissue is heterogeneously dense. This may lower the sensitivity of mammography. No significant changes when compared with prior studies. ASSESSMENT: Benign, BI-RAD 2 RECOMMENDATION: Routine screening mammogram of both breasts in 1 year.
== END | disposition home or self-care (01) ==
LOC: RADMAMWWP 13:59
PROVIDERS: ATTEND Internal Medicine
DX: Z12.31 Encounter for screening mammogram for malignant neoplasm of breast (principal); M85.80 Other specified disorders of bone density and structure, unspecified site
CPT/HCPCS: 77063; 77067; 77080

== ENCOUNTER → 2019-03-06 | Day surgery (SDC) | payer MEDICAID ==
[2019-02-27 14:18] VITALS: BMI 28.6
[~2019-03-06] MED LIST changes: +ALPRAZolam 0.25 MG TAB PO PRN; +ALPRAZolam 0.5 MG TAB PO PRN; +ASPIRIN 325 MG TAB PO ONE; +ATORVASTATIN 80 MG TAB PO ONE; +IOPAMIDOL-370 125ML BTL INJ ONE; +NITROGLYCERIN SL TABS 0.4 MG TAB SUBLINGUAL PRN; -REGADENOSON 0.4 MG/5 ML SYRINGE IV ONE; +RX INFO: IV CONTRAST WAS GIVEN 1 EACH MISC MISCELLANE PRN; +SODIUM CHLORIDE 0.9% 1,000 ML IV SCH; +SODIUM CHLORIDE 0.9% 1,000 ML in EMPTY BAG 1 BAG IV ONE; +diphenhydrAMINE 50 MG/ML 1 ML VIAL IVP ONE; +methylPREDNISolone SOD SUCCI 125 MG/2 ML VIAL IV ONE
[2019-03-06 07:52] VITALS: RESP 16; TEMP 97.9
[2019-03-06] MEDS: MIDAZOLAM 2 MG/2 ML VIAL IV ONE ×2 (08:44→08:58)
[2019-03-06] MEDS: LIDOCAINE 1% INJ 10MG/ML (20 ML MDV) SQ ONE ×2 (08:45→08:57)
[2019-03-06] MEDS: VERAPAMIL SYRINGE (5 MG/10 ML) INTRAARTER ONE ×2 (08:50→08:55)
--- NOTE | 2019-03-06 09:48 | CC ---
CARDIAC CATHETERIZATION REPORT DATE OF SERVICE: March 06, 2019 PERFORMING PHYSICIAN: Chip Ruiz MD. PROCEDURE PERFORMED: 1. Selective right and left coronary angiogram. 2. Left heart catheterization. INDICATION: This is a 63-year-old female patient with history of dyslipidemia, who was going to undergo knee surgery, but she underwent myocardial perfusion imaging stress test and that revealed lateral ischemia. She was seen by Dr. Vargas who referred the patient for further cardiac evaluation. APPROACH: Right common femoral artery. COMPLICATION: None. LEVEL OF SEDATION: Moderate with sedation length of 31 minutes. PROCEDURE DESCRIPTION: After obtaining an informed consent, the patient was brought to the cardiac director labor standards. Initially I accessed the right radial artery, but I could not reach the right subclavian and because of that, I aborted the right radial access and I went from the groin. The right common femoral artery was cannulated using micropuncture technique and a micropuncture wire passed easily then I placed a 5-Macedonian sheath at the right common femoral artery. After that I did selective right and left coronary angiogram using 5-Macedonian JL4 and JR4 catheters. Left heart catheterization was performed using 5- Macedonian pigtail catheter. The procedure was completed without any complication. SELECTIVE CORONARY ANGIOGRAM: 1. The right coronary artery is a large caliber vessel and it is a dominant vessel. The RCA has mild disease in the midportion. Distally, it bifurcates into PDA and PLV branches both appeared to be angiographically normal. 2. The left main is angiographically normal. It bifurcates into left circumflex and left anterior descending artery. 3. The LCX is a large caliber vessel. It is a nondominant vessel. The proximal left circumflex appeared to be normal. The mid left circumflex has a tubular lesion appeared to be in the range of 50%. The left circumflex distally appeared to be normal as well. The left circumflex gives rise in the midportion into an OM branch which seems to be angiographically normal. 4. The LAD: The proximal LAD appeared to be normal. It gives rise into a large diagonal branch which seems to be normal. The LAD in the mid and distal portion appeared to be normal. HEMODYNAMICS: The LVEDP was 12 to 14 mmHg without significant gradient across the aortic valve. CONCLUSION: 1. Intermediate disease involving the left circumflex appeared to be in the range of 50%. 2. Normal left ventricular end-diastolic pressure. POSTPROCEDURE MANAGEMENT: 1. Aggressive cholesterol control. 2. Add aspirin to the current medical regimen in addition to adding statin. 3. Follow up with the patient. NOEMY / SUSY: [id number] /
[2019-03-06 12:32] VITALS: BP 158/78; PULSE 64
== END ==
LOC: CATHCVL 07:26
PROVIDERS: ATTEND Internal Medicine Interventional Cardiology
DX: I25.10 Atherosclerotic heart disease of native coronary artery without angina pectoris (principal); I10 Essential (primary) hypertension; E78.00 Pure hypercholesterolemia, unspecified; E78.5 Hyperlipidemia, unspecified; Z79.899 Other long term (current) drug therapy
CPT/HCPCS: 93458; C1769 ×4; C1894 ×2; C1760; J2250; J1200; J2930; J2001; Q9967

== ENCOUNTER → 2019-08-07 | Outpatient (CLI) | payer MEDICAID ==
[2019-08-07 11:12] LABS: Basophils % (A) 0 %; Eosinophils # (A) 0.1 k/uL (0-0.7); Eosinophils % (A) 1 %; HCT 40.5 % (34.0-46.0); HGB 13.2 gm/dL (11.4-16.0); Hypochromasia Slight; Lymphocytes # (A) 1.4 k/uL (1.0-4.8); Lymphocytes % (A) 20 %; MCH 30.3 pg (25.0-35.0); MCHC 32.5 g/dL (31.0-37.0); MCV 93.3 fL (80.0-100.0); Monocytes # (A) 0.4 k/uL (0-1.0); Monocytes % (A) 5 %; Neutrophils # (A) 5.1 k/uL (1.3-7.7); Neutrophils % (A) 73 %; Platelet Count 238 k/uL (150-450); RBC 4.35 m/uL (3.80-5.40); RDW 12.8 % (11.5-15.5)
[2019-08-07 13:07] LABS: Erythrocyte Sedimentation Rate 36 mm/hr (0-20)
[2019-08-07 16:21] LABS: African American GFR (CKD) 118.5 (60.0-200.0); Albumin 4.1 g/dL (3.80-4.90); Albumin/Globulin Ratio 1.95 (1.60-3.17); Anion Gap 5.2 mmol/L (4.00-12.00); Calcium 9.2 mg/dL (8.7-10.3); Carbon Dioxide 29.8 mmol/L (21.6-31.8); Chol/HDL Ratio 2.65; Globulin 2.1 g/dL (1.6-3.3); LDL Cholesterol,Calculated 54.6 mg/dL (0.0-131.0); Non-African American GFR(CKD) 102.3 (60.0-200.0); Potassium 4.9 mmol/L (3.5-5.5); Total Bilirubin 0.5 mg/dL (0.3-1.2); Total Protein 6.2 g/dL (6.2-8.2); VLDL Calculation 11.4 mg/dL (5.00-40.00)
[2019-08-07 17:39] LABS: Centromere Antibody <0.2 AI; Centromere Antibody Interp NEGATIVE (NEGATIVE); Cyclic Citrull Pep IgG Unit <0.5 U/mL; Cyclic Citrullinated Pep IgG NEGATIVE (NEGATIVE); DNA Double-Stranded NEGATIVE (NEGATIVE); Gliadin AB IgA, Deaminated NEGATIVE (NEGATIVE); Gliadin AB IgA, Unit <0.2 U/mL; Gliadin AB IgG, Deaminated NEGATIVE (NEGATIVE); Scleroderma SC-70 Ab <0.2 AI
== END | disposition home or self-care (01) ==
LOC: LABWHC1 09:19
PROVIDERS: ATTEND Internal Medicine Gastroenterology
DX: E78.2 Mixed hyperlipidemia (principal); I10 Essential (primary) hypertension; M33.20 Polymyositis, organ involvement unspecified; R19.4 Change in bowel habit
CPT/HCPCS: 36415; 80053; 80061; 82085; 82550; 83516; 85025; 85652; 86038; 86200; 86225; 86235; 86431

== ENCOUNTER → 2019-09-17 | Outpatient (CLI) | payer MEDICAID ==
[2019-09-17 11:19] LABS: Basophils % (A) 0 %; Eosinophils # (A) 0.1 k/uL (0-0.7); Eosinophils % (A) 1 %; HCT 44.8 % (34.0-46.0); HGB 14.4 gm/dL (11.4-16.0); Hypochromasia Slight; Lymphocytes % (A) 35 %; MCH 30.6 pg (25.0-35.0); MCHC 32.2 g/dL (31.0-37.0); MCV 95.1 fL (80.0-100.0); Mean Platelet Volume 7.3; Monocytes # (A) 0.4 k/uL (0-1.0); Monocytes % (A) 5 %; Neutrophils # (A) 5.1 k/uL (1.3-7.7); Neutrophils % (A) 58 %; Platelet Count 245 k/uL (150-450); RBC 4.71 m/uL (3.80-5.40); RDW 13.4 % (11.5-15.5); WBC 8.8 k/uL (3.8-10.6)
[2019-09-17 18:00] LABS: African American GFR (CKD) 110.9 (60.0-200.0); Albumin 4.2 g/dL (3.80-4.90); Albumin/Globulin Ratio 2.1 (1.60-3.17); Anion Gap 7.6 mmol/L (4.00-12.00); C Reactive Protein 1.8 mg/dL (0.0-0.8); Calcium 9.3 mg/dL (8.7-10.3); Carbon Dioxide 32.4 mmol/L (21.6-31.8); Chol/HDL Ratio 2.79; Non-African American GFR(CKD) 95.7 (60.0-200.0); Potassium 4.7 mmol/L (3.5-5.5); Total Bilirubin 0.8 mg/dL (0.3-1.2); Total Protein 6.2 g/dL (6.2-8.2)
[2019-09-17 18:56] LABS: Erythrocyte Sedimentation Rate 8 mm/Hr (0-30)
[2019-09-17 19:49] LABS: Hemoglobin A1C 6.3 % (4.0-6.0)
== END | disposition home or self-care (01) ==
LOC: LABWHC1 09:14
PROVIDERS: ATTEND Internal Medicine
DX: M35.3 Polymyalgia rheumatica (principal); E78.2 Mixed hyperlipidemia
CPT/HCPCS: 36415; 80053; 80061; 83036; 85025; 85652; 86140

== ENCOUNTER → 2019-10-06 | Outpatient (CLI) | payer MEDICAID ==
--- NOTE | 2019-10-06 16:57 | XR ---
Lumbar spine HISTORY: Polyarthritis, pain 3 views of the lumbar spine correlated prior exam 08/14/2016 The levoscoliosis and degenerative disc changes show similar appearance. Bone mineralization is reduc ed. Hypertrophic spondylosis is present. Loss of disc height is present at intervertebral levels. Scl erosis in the posterior elements is consistent with facet arthropathy. L1 vertebral bodies show some loss of height superior margin. Findings stable. Apical scarring vascular calcifications are suspecte d. There impression: Scoliosis, degenerative disc disease, facet arthropathy and osteopenia are similar to jayme or exam.
--- NOTE | 2019-10-06 17:00 | XR ---
AP pelvis HISTORY: Pain Frontal view the pelvis and 2 images Degenerative disc changes are noted in the lower lumbar spine. Bone mineralization slightly reduced. Joint spaces and alignment are maintained. No fracture or dislocation. IMPRESSION: Degenerative disc disease.
--- NOTE | 2019-10-06 17:02 | XR ---
Cervical spine HISTORY: Polyarthritis, pain 4 views of the cervical spine correlated prior exam 12/13/2015 Surgical clips are present at the thoracic inlet level. 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 Is multilevel facet arthropathy change. Multilevel spondylosis is present, there is reversal the normal cervical l ordosis. Loss of disc height present C3-4, C4-5, C5-6 and C6-7. Cervical vertebral bodies show preser aquilino height. Bone mineralization is reduced. Prevertebral soft tissues within normal limits. IMPRESSION: Degenerative disc disease and facet arthropathy. Additional findings above.
== END | disposition home or self-care (01) ==
LOC: RADXRMAIN 16:00
PROVIDERS: ATTEND Internal Medicine Rheumatology
DX: M50.30 Other cervical disc degeneration, unspecified cervical region (principal); M51.36 Other intervertebral disc degeneration, lumbar region; M47.812 Spondylosis without myelopathy or radiculopathy, cervical region; M47.816 Spondylosis without myelopathy or radiculopathy, lumbar region; M41.86 Other forms of scoliosis, lumbar region; M85.88 Other specified disorders of bone density and structure, other site; R90.89 Other abnormal findings on diagnostic imaging of central nervous system
CPT/HCPCS: 72040; 72100; 72170

== ENCOUNTER → 2019-10-08 | Outpatient (CLI) | payer MEDICAID ==
[2019-10-08 14:11] LABS: Basophils % (A) 0 %; Eosinophils # (A) 0.1 k/uL (0-0.7); Eosinophils % (A) 1 %; HCT 45.7 % (34.0-46.0); HGB 14.1 gm/dL (11.4-16.0); Hypochromasia Slight; Lymphocytes # (A) 1.4 k/uL (1.0-4.8); Lymphocytes % (A) 11 %; MCH 29.2 pg (25.0-35.0); MCHC 30.8 g/dL (31.0-37.0); MCV 94.9 fL (80.0-100.0); Mean Platelet Volume 7.5; Monocytes # (A) 0.4 k/uL (0-1.0); Monocytes % (A) 3 %; Neutrophils # (A) 11.2 k/uL (1.3-7.7); Neutrophils % (A) 85 %; Platelet Count 238 k/uL (150-450); RBC 4.81 m/uL (3.80-5.40); RDW 14.2 % (11.5-15.5); WBC 13.2 k/uL (3.8-10.6)
[2019-10-08 18:30] LABS: T4, Free (Free Thyroxine) 1.5 ng/dL (0.80-1.80)
[2019-10-08 18:38] LABS: Cyclic Citrull Pep IgG Unit <0.5 U/mL; Cyclic Citrullinated Pep IgG NEGATIVE (NEGATIVE)
[2019-10-08 18:41] LABS: African American GFR (CKD) 105.4 (60.0-200.0); Anion Gap 5.5 mmol/L (4.00-12.00); BUN/Creat Ratio 24.29 Ratio (12.00-20.00); C Reactive Protein 2.9 mg/dL (0.0-0.8); Calcium 10.1 mg/dL (8.7-10.3); Carbon Dioxide 32.5 mmol/L (21.6-31.8); Non-African American GFR(CKD) 90.9 (60.0-200.0); Potassium 4.5 mmol/L (3.5-5.5); Uric Acid 7.7 mg/dL (2.9-7.7)
[2019-10-08 19:57] LABS: Erythrocyte Sedimentation Rate 9 mm/Hr (0-30)
[2019-10-09 11:41] LABS: Angiotensin-1 Converting Enz. 36 U/L (8-52)
[2019-10-09 15:24] LABS: Vitamin D, 1, 25-Dihydroxy 55 pg/mL (20 - 79)
[2019-10-09 16:23] LABS: HLA B27 NEGATIVE
== END | disposition home or self-care (01) ==
LOC: LABWHC1 13:14
PROVIDERS: ATTEND Internal Medicine Rheumatology
DX: M13.0 Polyarthritis, unspecified (principal); E55.9 Vitamin D deficiency, unspecified; E03.9 Hypothyroidism, unspecified
CPT/HCPCS: 36415; 80048; 82164; 82306; 82550; 82652; 84439; 84443; 84450; 84460; 84550; 85025; 85652; 86038; 86140; 86200; 86431; 86812

== ENCOUNTER → 2019-12-21 | Outpatient (CLI) | payer MEDICAID ==
--- NOTE | 2019-12-21 22:40 | MR ---
EXAMINATION TYPE: MR cervical spine wo con DATE OF EXAM: 12/21/2019 COMPARISON: None HISTORY: upper arm and upper leg pain for several years/ xray on pacs CONTRAST: Performed utilizing 0 mL intravenous Gadavist gadolinium contrast. TECHNIQUE: Multiplanar multiecho imaging on a 3.0 Nicolasa magnet is performed through the cervical spin e. FINDINGS: The craniovertebral junction is normal. Vertebral body alignment is normal. C7-T1: Minimal disc bulge is present with anterior thecal sac contact. No cord contact is evident. N o spinal canal stenosis or neural foraminal stenosis is present. C6-7: Minimal disc bulge is anterior thecal sac flattening. No spinal canal stenosis or neural forami nal stenosis is present. There is loss of disc height to this level.. C5-6: There is loss of disc height. Residual disc bulge has anterior thecal sac contact. No cord cont act is evident. No spinal canal stenosis is present. Moderate bilateral foraminal narrowing from unco vertebral joint hypertrophy is present.. C4-5: Mild right paracentral disc bulge is present with anterior thecal sac compression. No spinal ca nal stenosis or cord deformity is evident. Neural foramen are patent.. C3-4: Small right paracentral disc bulge is present with moderate anterior thecal sac compression. Th is may has cord contact may has some mild cord flattening. No AP spinal canal stenosis present. Right foraminal narrowing from uncovertebral joint hypertrophy is present.. C2-3: No focal disc herniation or significant disc bulge is evident. No spinal canal stenosis or john ral foraminal stenosis is present. IMPRESSIONS: 1. Right paracentral disc bulge with cord contact and mild cord flattening at L3-4. 2. Mild right paracentral disc bulge C4-5 with mild anterior thecal sac compression. 3. Loss of disc height C5-6, C6-7
== END | disposition home or self-care (01) ==
LOC: RADMRIMAIN 14:59
DX: M50.221 Other cervical disc displacement at C4-C5 level (principal); M53.82 Other specified dorsopathies, cervical region; G89.29 Other chronic pain
CPT/HCPCS: 72141

== ENCOUNTER → 2019-12-21 | Outpatient (CLI) | payer MEDICAID ==
[2019-12-21 14:51] LABS: Basophils % (A) 0 %; Eosinophils # (A) 0.1 k/uL (0-0.7); Eosinophils % (A) 1 %; HCT 44.4 % (34.0-46.0); HGB 14.2 gm/dL (11.4-16.0); Lymphocytes # (A) 1.3 k/uL (1.0-4.8); Lymphocytes % (A) 15 %; MCH 30.8 pg (25.0-35.0); MCV 96.4 fL (80.0-100.0); Mean Platelet Volume 7.3; Monocytes # (A) 0.3 k/uL (0-1.0); Monocytes % (A) 3 %; Neutrophils # (A) 6.8 k/uL (1.3-7.7); Neutrophils % (A) 80 %; Platelet Count 231 k/uL (150-450); RBC 4.61 m/uL (3.80-5.40); RDW 12.6 % (11.5-15.5); WBC 8.5 k/uL (3.8-10.6)
[2019-12-21 19:26] LABS: Erythrocyte Sedimentation Rate 10 mm/Hr (0-30)
[2019-12-21 20:14] LABS: Protein, Total 6.6 g/dL (6.2-8.2)
[2019-12-21 20:59] LABS: Hepatitis C IgG Antibody Non-Reactive (Non-Reactive)
[2019-12-21 22:08] LABS: African American GFR (CKD) 110.9 (60.0-200.0); Albumin 4.5 g/dL (3.80-4.90); Albumin/Globulin Ratio 2.25 (1.60-3.17); Anion Gap 9.6 mmol/L (4.00-12.00); BUN/Creat Ratio 21.67 Ratio (12.00-20.00); C Reactive Protein 0.8 mg/dL (0.0-0.8); Calcium 10.1 mg/dL (8.7-10.3); Carbon Dioxide 29.4 mmol/L (21.6-31.8); Non-African American GFR(CKD) 95.7 (60.0-200.0); Potassium 4.7 mmol/L (3.5-5.5); Total Bilirubin 0.5 mg/dL (0.3-1.2); Total Protein 6.5 g/dL (6.2-8.2)
[2019-12-21 22:14] LABS: JO-1 IgG Antibody <0.2 AI
--- NOTE | 2019-12-22 09:26 | XR ---
EXAMINATION TYPE: XR shoulder complete BILAT DATE OF EXAM: 12/21/2019 COMPARISON: NONE HISTORY: Pain TECHNIQUE: Shoulder examined in 3 views FINDINGS: The humeral head articulates with the glenoid. The acromio-clavicular junction is normal. There is an ossification along the right posterior superior glenoid may be an avulsion or chip fractu re. Cortical margins may be smooth, this could be an older fracture. This may have been present in 20 17 on the chest x-ray. Left shoulder appears normal. A follow up study can be performed 7-10 days from acute trauma for continued pain. IMPRESSION: 1. Suspected old chip fracture of the posterior superior right glenoid. 2. No acute process is identified bilateral shoulders.
--- NOTE | 2019-12-22 09:28 | XR ---
EXAMINATION TYPE: XR chest 2V DATE OF EXAM: 12/21/2019 COMPARISON: 08/14/2016 INDICATION: Shoulder pain TECHNIQUE: Frontal and lateral views of the chest are obtained. FINDINGS: The heart size is normal. The pulmonary vasculature is normal. The lungs are clear. There is chronic elevation of the right diaphragm which appears chronic. Small chip at the right posterior superior glenoid is again evident and may be old from the compariso n chest x-ray. IMPRESSION: 1. No acute pulmonary process.
--- NOTE | 2019-12-22 09:30 | XR ---
EXAMINATION TYPE: XR Hip Bilateral and AP pelvis DATE OF EXAM: 12/21/2019 COMPARISON: 10/06/2019 HISTORY: Bilateral hip pain TECHNIQUE: AP pelvis and bilateral hips 2 views each FINDINGS: There is mild narrowing of the left hip joint space. Similar narrowing of the right hip fredi nt space is present. No acute fractures or dislocations are evident. Sacroiliac joints and symphysis pubis are normal. Normal bowel gas is present. IMPRESSION: 1. Mild degenerative changes bilateral hips.
[2019-12-22 13:25] LABS: Albumin 3.89 g/dL (3.80-4.90); Gamma Globulin 0.76 g/dL (0.70-1.50)
[2019-12-23 13:50] LABS: Aldolase 3.6 U/L (1.2-7.6)
== END | disposition home or self-care (01) ==
LOC: LABWHC1 14:00
PROVIDERS: ATTEND Internal Medicine Rheumatology
DX: M16.0 Bilateral primary osteoarthritis of hip (principal); M62.81 Muscle weakness (generalized); M25.511 Pain in right shoulder; M25.512 Pain in left shoulder; M25.551 Pain in right hip; M25.552 Pain in left hip; R79.82 Elevated C-reactive protein (CRP)
CPT/HCPCS: 36415; 71046; 73521; 80053; 82085; 82164; 82542; 82550; 84165; 85025; 85652; 86140; 86235; 86803

== ENCOUNTER → 2020-07-25 | Outpatient (CLI) | payer MEDICARE ==
--- NOTE | 2020-07-25 17:30 | US ---
EXAMINATION TYPE: US venous doppler duplex LE LT DATE OF EXAM: 07/25/2020 5:04 PM COMPARISON: NONE CLINICAL HISTORY: I80.9 PHLEBITIS AND THROMBOPHLEBITIS OF SITE. left leg edema and pain SIDE PERFORMED: left TECHNIQUE: The lower extremity deep venous system is examined utilizing real time linear array sonog salvador with graded compression, doppler sonography and color-flow sonography. VESSELS IMAGED: Common Femoral Vein Deep Femoral Vein Greater Saphenous Vein * Femoral Vein Popliteal Vein Small Saphenous Vein * Proximal Calf Veins (* superficial vessels) There is normal flow, compressibility, vascular waveforms. Left Leg: no evidence of DVT as visualized. anechoic area popliteal fossa = 2.2 x 1.7cm Nielsen's cyst . IMPRESSION: No evident deep venous thrombosis at or central to the left knee within the left lower ex tremity
== END | disposition home or self-care (01) ==
LOC: RADUSWWP 16:33
PROVIDERS: ATTEND Orthopaedic Surgery
DX: I80.292 Phlebitis and thrombophlebitis of other deep vessels of left lower extremity (principal)

== ENCOUNTER → 2020-08-25 | Outpatient (CLI) | payer MEDICARE | END | disposition home or self-care (01) | LOC: LABWHC1 14:58 | PROVIDERS: ATTEND Orthopaedic Surgery | DX: M25.561 Pain in right knee (principal); M25.562 Pain in left knee; M17.0 Bilateral primary osteoarthritis of knee | CPT/HCPCS: 87070 ==

== ENCOUNTER → 2020-08-25 | Outpatient (CLI) | payer MEDICARE ==
[2020-08-25 14:59] LABS: HCT 31.7 % (34.0-46.0); HGB 10.1 gm/dL (11.4-16.0); Hypochromasia Moderate; MCH 25.6 pg (25.0-35.0); MCHC 31.8 g/dL (31.0-37.0); MCV 80.7 fL (80.0-100.0); Mean Platelet Volume 6.7; Platelet Count 549 k/uL (150-450); RBC 3.93 m/uL (3.80-5.40); RDW 15.2 % (11.5-15.5); WBC 8.9 k/uL (3.8-10.6)
[2020-08-25 15:08] LABS: African American GFR (CKD) >90 (>60 ml/min/1.73 sqM); Blood Urea Nitrogen 14 mg/dL (7-17); Non-African American GFR(CKD) >90 (>60 ml/min/1.73 sqM)
--- NOTE | 2020-08-26 10:55 | CT ---
EXAMINATION TYPE: CT ChestAbdPelvis w con DATE OF EXAM: 08/25/2020 INDICATION: Anemia. COMPARISON: 06/25/2014 CT DLP: 1577.1 mGycm CONTRAST: Performed with Oral Contrast and with IV Contrast, patient injected with 100ml mL of Isovue 300. TECHNIQUE: Axial images at 5 mm thick sections. Reconstructed images in the coronal plane. Delayed images through the kidneys. FINDINGS: CT CHEST: Portion of the thyroid visualized is normal. No suspicious lung nodules or focal infiltrates are present. No enlarged mediastinal or hilar adenopathy is evident. The ascending aorta diameter at the level of the main pulmonary artery is 4.2 cm. The main pulmonary artery diameter at the bifurcation is 2.[address] ABDOMEN: There may be some wall thickening within the antrum of stomach. Consider antritis. Liver: Minimal fatty infiltration of the liver may be present. No discrete masses are evident. Spleen: Normal Pancreas: Normal Adrenal glands: The adrenal glands are normal. Gallbladder: Normal Kidneys: No masses are evident. No hydronephrosis is present. No cysts are present. Delayed images were obtained through the kidneys, which remain unremarkable. Aorta: Vascular calcification is within the aorta. Inferior vena cava: Normal. CT PELVIS: Diverticular changes are within the sigmoid colon. No suspicious adjacent inflammatory changes are ev ident. Oral contrast extends to the distal descending colon. There are loops of bowel which are incom pletely distended or lack oral contrast limiting their evaluation. Appendix: Normal as visualized. Urinary bladder: Urinary bladder is largely decompressed with limited evaluation. Genitourinary structures: Uterus appears large and bulky. Adnexal regions are clear Osseous structures: There is some ill-defined lucency within the left body of the L3 vertebral level. Lytic lesion is not excluded. However this appears stable from the comparison of 06/25/2014 and july e a chronic change through the scoliotic lumbar spine. IMPRESSIONS: 1. Ascending thoracic aortic aneurysm measuring 4.2 cm. This may be minimally larger than the 4.0 cm previous. 2. Stable appearance of lucency within the left L3 vertebral level. 3. Diverticulosis without acute diverticulitis. 4. Clinical consideration for antritis is recommended
== END | disposition home or self-care (01) ==
LOC: RADCTMAIN 14:19
PROVIDERS: ATTEND Internal Medicine
DX: I71.2 Thoracic aortic aneurysm, without rupture (principal); K57.90 Diverticulosis of intestine, part unspecified, without perforation or abscess without bleeding
CPT/HCPCS: 82565; 84520; 85027; 71260; 74177; 36415; Q9967

== ENCOUNTER → 2020-08-30 | Outpatient (CLI) | payer MEDICARE ==
--- NOTE | 2020-08-31 09:56 | P.ARTDOP ---
Arterial Doppler LOWER EXTREMITY ARTERIAL DOPPLER: DATE OF SERVICE: 08/30/2020 Reason for study: Left leg swelling. Physician suspecting PAD. Doppler waveforms: Multiphasic bilaterally throughout. Pulse volume recording: []. Pressure gradients: None. Ankle-brachial indices: Greater than 1 bilaterally. Toe brachial indices: 0.83 on the right, 0.88 on the left Impression: Normal study.
== END | disposition home or self-care (01) ==
LOC: RADUSWWP 06:59
PROVIDERS: ATTEND Internal Medicine
DX: I73.9 Peripheral vascular disease, unspecified (principal)
CPT/HCPCS: 93922; 93923

== ENCOUNTER → 2020-09-02 | Outpatient (CLI) | payer MEDICARE ==
[~2020-09-02] MED LIST changes: -ALPRAZolam 0.25 MG TAB PO PRN; -ALPRAZolam 0.5 MG TAB PO PRN; -ASPIRIN 325 MG TAB PO ONE; -ATORVASTATIN 80 MG TAB PO ONE; -IOPAMIDOL-370 125ML BTL INJ ONE; +IRON SUCROSE 100 MG in SODIUM CHLORIDE 0.9% 100 ML IVPB NR; -NITROGLYCERIN SL TABS 0.4 MG TAB SUBLINGUAL PRN; -RX INFO: IV CONTRAST WAS GIVEN 1 EACH MISC MISCELLANE PRN; -SODIUM CHLORIDE 0.9% 1,000 ML IV SCH; -SODIUM CHLORIDE 0.9% 1,000 ML in EMPTY BAG 1 BAG IV ONE; +SODIUM CHLORIDE 0.9% 500 ML 500 ML in EMPTY BAG 1 BAG IV PRN; -diphenhydrAMINE 50 MG/ML 1 ML VIAL IVP ONE; -methylPREDNISolone SOD SUCCI 125 MG/2 ML VIAL IV ONE
[2020-09-02 12:00] VITALS: BP 101/71; PULSE 90; RESP 16; TEMP 99.4
== END ==
LOC: PROCWHC3 11:34
PROVIDERS: ATTEND Internal Medicine
DX: D64.9 Anemia, unspecified (principal)
CPT/HCPCS: 96365; J1756

== ENCOUNTER → 2020-09-16 | Outpatient (CLI) | payer MEDICARE ==
[2020-09-17 05:14] LABS: Hepatitis A Antibody IgM Non-Reactive (Non-Reactive); Hepatitis B Core IgM Non-Reactive (Non-Reactive); Hepatitis B Surface Antigen Non-Reactive (Non-Reactive); Hepatitis C IgG Antibody Non-Reactive (Non-Reactive)
== END | disposition home or self-care (01) ==
LOC: LABWHC1 12:17
PROVIDERS: ATTEND Internal Medicine Rheumatology
DX: M35.3 Polymyalgia rheumatica (principal); R70.0 Elevated erythrocyte sedimentation rate
CPT/HCPCS: 36415; 80074; 85652; 86140; 86480; 87040

== ENCOUNTER → 2020-09-28 | Outpatient (CLI) | payer MEDICARE ==
[2020-09-29 03:41] LABS: African American GFR (CKD) 110.1 (60.0-200.0); Albumin 4.6 g/dL (3.80-4.90); Albumin/Globulin Ratio 1.84 (1.60-3.17); Anion Gap 17.3 mmol/L (4.00-12.00); BUN/Creat Ratio 28.33 Ratio (12.00-20.00); C Reactive Protein 0.5 mg/dL (0.0-0.8); Calcium 10.1 mg/dL (8.7-10.3); Carbon Dioxide 27.7 mmol/L (21.6-31.8); Globulin 2.5 g/dL (1.6-3.3); Potassium 5.1 mmol/L (3.5-5.5); Total Bilirubin 0.5 mg/dL (0.3-1.2); Total Protein 7.1 g/dL (6.2-8.2)
[2020-09-29 04:43] LABS: Hepatitis B Core IgM Non-Reactive (Non-Reactive); Hepatitis B Surface Antigen Non-Reactive (Non-Reactive); Hepatitis C IgG Antibody Non-Reactive (Non-Reactive)
[2020-09-30 09:23] LABS: Hepatitis A Antibody IgM Non-Reactive (Non-Reactive)
== END | disposition home or self-care (01) ==
LOC: LABWHC1 09:52
PROVIDERS: ATTEND Internal Medicine Rheumatology
DX: M35.3 Polymyalgia rheumatica (principal); R70.0 Elevated erythrocyte sedimentation rate
CPT/HCPCS: 36415; 80053; 80074; 85652; 86140; 86480; 87040

== ENCOUNTER → 2020-10-28 | Outpatient (CLI) | payer MEDICARE ==
--- NOTE | 2020-11-03 04:29 | MR ---
EXAMINATION TYPE: MR pelvis wo/w con DATE OF EXAM: 10/28/2020 COMPARISON: 09/24/[address] scan 06/25/[address] scan 08/25/2020 HISTORY: Polymyalgia rheumatica CONTRAST: Standard multiplanar, multisequence MRI departmental protocol utilizing 7 mL intravenous Gadavist ciera olinium contrast. There is a multiseptated predominantly cystic mass in the pelvis in the midline. The mass measures 9 x 8 x 8.5 cm. There are numerous septations. There is a irregular solid component on the posterior as pect. There is hysterectomy. There is impression upon the urinary bladder. Urinary bladder appears in tact. There is tiny amount of free fluid in the pelvis on the left side in the left adnexal region. There is some wall thickening of the sigmoid colon consistent with hypertrophy. Contrast images do no t show any significant pathologic enhancement. There are numerous sigmoid diverticula. There is no ev idence of inguinal hernia. The sacroiliac joints are intact. Sacrum is intact. 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 The size is not significantly different than on the MR scan of 09/24/2020. No significant free fluid. Mass also not significantly different than CT scan of 08/25/2020. Mass appears new compared to older CT sc an of 06/25/2014. There is small amount of free fluid in the pelvis. No evidence of ascites. Moderate sigmoid diverticulosis. No definite sign of diverticulitis.
== END | disposition home or self-care (01) ==
LOC: RADMRIMAIN 12:14
PROVIDERS: ATTEND Internal Medicine Rheumatology
DX: K57.30 Diverticulosis of large intestine without perforation or abscess without bleeding (principal); M35.3 Polymyalgia rheumatica
CPT/HCPCS: 72197; A9585

== ENCOUNTER → 2020-11-02 | Outpatient (CLI) | payer MEDICARE ==
[2020-11-02 15:42] LABS: Basophils # (A) 0.03 X 10*3/uL (0.00-0.10); Basophils % (A) 0.4 %; Eosinophils # (A) 0.12 X 10*3/uL (0.04-0.35); Eosinophils % (A) 1.6 %; HCT 42.2 % (37.2-46.3); HGB 12.4 g/dL (12.0-15.0); Lymphocytes # (A) 3.91 X 10*3/uL (0.90-5.00); Lymphocytes % (A) 50.7 %; MCH 26.8 pg (27.0-32.0); MCHC 29.4 g/dL (32.0-37.0); MCV 91.3 fL (80.0-97.0); Mean Platelet Volume 9.5 fL (9.5-12.2); Monocytes # (A) 0.57 X 10*3/uL (0.20-1.00); Monocytes % (A) 7.4 %; Neutrophils # (A) 3.04 X 10*3/uL (1.80-7.70); Neutrophils % (A) 39.4 %; Platelet Count 257 X 10*3/uL (140-440); RBC 4.62 X 10*6/uL (4.10-5.20); RDW 21.2 % (11.5-14.5); WBC 7.71 X 10*3/uL (4.50-10.00)
[2020-11-02 17:47] LABS: Erythrocyte Sedimentation Rate 6 mm/Hr (0-30)
[2020-11-02 18:43] LABS: Ferritin 64.2 ng/mL (10.0-291.0)
[2020-11-02 19:01] LABS: % Iron Saturation 32.78 (12.00-45.00); C Reactive Protein <0.4 mg/dL (0.0-0.8); Iron 98 ug/dL (50-170); Total Iron Binding Capacity 299 ug/dL (228-460)
== END | disposition home or self-care (01) ==
LOC: LABWHC1 09:59
PROVIDERS: ATTEND Internal Medicine Rheumatology
DX: M35.3 Polymyalgia rheumatica (principal)
CPT/HCPCS: 36415; 82728; 83540; 83550; 85025; 85652; 86140

== ENCOUNTER → 2020-12-07 | Outpatient (CLI) | payer MEDICARE | END | disposition home or self-care (01) | LOC: LABWHC1 10:47 | PROVIDERS: ATTEND Internal Medicine Rheumatology | DX: M35.3 Polymyalgia rheumatica (principal); Z79.52 Long term (current) use of systemic steroids | CPT/HCPCS: 36415; 83036; 85652; 86140 ==

== ENCOUNTER → 2021-01-06 | Outpatient (CLI) | payer MEDICARE | END | disposition home or self-care (01) | LOC: LABWHC1 15:08 | PROVIDERS: ATTEND Internal Medicine Rheumatology | DX: M35.3 Polymyalgia rheumatica (principal) | CPT/HCPCS: 36415; 85652; 86140 ==

== ENCOUNTER → 2021-02-24 | Outpatient (CLI) | payer MEDICARE | END | disposition home or self-care (01) | LOC: LABWHC1 12:08 | PROVIDERS: ATTEND Internal Medicine Rheumatology | DX: M35.3 Polymyalgia rheumatica (principal) | CPT/HCPCS: 36415; 85652; 86140 ==

== ENCOUNTER → 2021-03-29 | Outpatient (CLI) | payer MEDICARE | END | disposition home or self-care (01) | LOC: LAB 12:26 | PROVIDERS: ATTEND Internal Medicine | DX: M35.3 Polymyalgia rheumatica (principal) | CPT/HCPCS: 36415; 85652; 86140 ==

== ENCOUNTER → 2021-03-30 | Outpatient (CLI) | payer MEDICARE ==
[2021-03-30 12:48] LABS: Appearance,Urine Clear (Clear); Bilirubin,Urine Negative (Negative); Blood,Urine Negative (Negative); Color,Urine Yellow; Glucose,Urine (UA) Negative (Negative); Hyaline Casts,Urine 4 /lpf (0-2); Ketones,Urine 2+ (Negative); Leukocyte Esterase,Urine Small (Negative); Mucus,Urine Occasional /hpf; Nitrite,Urine Negative (Negative); Protein,Urine Trace (Negative); RBC,Urine 3 /hpf (0-5); Squamous Epithelial Cell,Urine <1 /hpf (0-4); Urobilinogen,Urine <2.0 mg/dL (<2.0); WBC,Urine 4 /hpf (0-5)
[2021-03-30 15:02] LABS: Basophils # (A) 0.03 X 10*3/uL (0.00-0.10); Basophils % (A) 0.2 %; Eosinophils # (A) 0.05 X 10*3/uL (0.04-0.35); Eosinophils % (A) 0.4 %; HCT 43.4 % (37.2-46.3); HGB 13.4 g/dL (12.0-15.0); Lymphocytes # (A) 1.24 X 10*3/uL (0.90-5.00); Lymphocytes % (A) 9.8 %; MCH 29.6 pg (27.0-32.0); MCHC 30.9 g/dL (32.0-37.0); MCV 95.8 fL (80.0-97.0); Mean Platelet Volume 10.7 fL (9.5-12.2); Monocytes # (A) 0.35 X 10*3/uL (0.20-1.00); Monocytes % (A) 2.8 %; Neutrophils # (A) 10.96 X 10*3/uL (1.80-7.70); Neutrophils % (A) 86.5 %; Platelet Count 264 X 10*3/uL (140-440); RBC 4.53 X 10*6/uL (4.10-5.20); RDW 12.7 % (11.5-14.5); WBC 12.67 X 10*3/uL (4.50-10.00)
[2021-03-30 15:24] LABS: ALT 26 U/L (8-44); AST 28 U/L (13-35); African American GFR (CKD) 110.1 (60.0-200.0); Albumin 4.5 g/dL (3.8-4.9); Albumin/Globulin Ratio 1.88 (1.60-3.17); Alkaline Phosphatase 65 U/L (41-126); Blood Urea Nitrogen 16.2 mg/dL (9.0-27.0); Carbon Dioxide 25.8 mmol/L (20.0-27.5); Chloride 99 mmol/L (96-109); Chol/HDL Ratio 4.56 Ratio; Globulin 2.4 g/dL (1.6-3.3); Glucose 95 mg/dL (70-110); LDL Cholesterol,Calculated 90.2 mg/dL (0.0-131.0); Magnesium 2.1 mg/dL (1.5-2.4); Potassium 4.2 mmol/L (3.5-5.5); Sodium 140 mmol/L (135-145); Total Protein 6.9 g/dL (6.2-8.2)
[2021-03-30 16:52] LABS: Erythrocyte Sedimentation Rate 13 mm/Hr (0-30)
== END | disposition home or self-care (01) ==
LOC: LABWHC1 10:29
PROVIDERS: ATTEND Internal Medicine
DX: I10 Essential (primary) hypertension (principal); E78.2 Mixed hyperlipidemia; M81.0 Age-related osteoporosis without current pathological fracture; M35.3 Polymyalgia rheumatica; E03.9 Hypothyroidism, unspecified; R73.03 Prediabetes
CPT/HCPCS: 36415; 80053; 80061; 81001; 82306; 83036; 83735; 84439; 84443; 85025; 85652; 86140

== ENCOUNTER 2024-05-19 12:00 | Outpatient (CLI) | payer MEDICARE ==
[2024-05-19] MEDS: DENOSUMAB 60 MG/ML 1 ML SYRINGE SQ NR (12:19)
[2024-05-19 12:21] VITALS: BP 101/64; PULSE 66; RESP 16; TEMP 97.8
== END 2024-05-19 12:22 | disposition home or self-care (01) ==
LOC: PROCWHC3 12:00
PROVIDERS: ATTEND Internal Medicine
DX: M81.0 Age-related osteoporosis without current pathological fracture (principal)
CPT/HCPCS: 96372; J0897